=== PATIENT | female | born 1995 | race African-American/Black ===

== ENCOUNTER 2020-01-20 08:44 | Emergency (ER) | payer BC, OTHER ==
[~2020-01-20] VITALS: Ht 165.1 cm; Wt 121.1 kg
[2020-01-20] MEDS ORDERED: HYDROCORTISONE30 G9 RECTAL (09:40)
[2020-01-20] MEDS ORDERED: TRAMADOL 50 MG50 MG PO (09:55)
[2020-01-20] MEDS ORDERED: ANUSOL-HC25 MG RECTAL (09:55)
[2020-01-20 10:05] VITALS: BP 122/74
== END 2020-01-20 10:06 | disposition home or self-care (01) ==
LOC: ER 08:44
DX: K60.2 Anal fissure, unspecified (principal); Z20.2 Contact with and (suspected) exposure to infections with a predominantly sexual mode of transmission

== ENCOUNTER 2020-10-10 13:45 | Emergency (ER) | payer BC, OTHER ==
[~2020-10-10] VITALS: Ht 165.1 cm; Wt 117.9 kg
[~2020-10-10 13:45] MED LIST: ANUSOL-HC25 MG RECTAL; HYDROCORTISONE30 G9 RECTAL; TRAMADOL 50 MG50 MG PO
[2020-10-10 13:47] VITALS: BP 163/89
[2020-10-10] MEDS ORDERED: METFORMIN HCL500 M3 PO (13:55)
[2020-10-10 14:25] LABS: URINE BILIRUBIN NEGATIVE (Negative); URINE BLOOD NEGATIVE (Negative); URINE CLARITY CLEAR; URINE COLOR YELLOW; URINE GLUCOSE-RANDOM* NEGATIVE (Negative); URINE KETONES NEGATIVE (Negative); URINE LEUKOCYTES-REFLEX NEGATIVE (Negative); URINE NITRITE-REFLEX NEGATIVE (Negative); URINE PROTEIN (DIPSTICK) NEGATIVE (Negative); URINE SPECIFIC GRAVITY >= 1.030 (1.005-1.035); URINE UROBILINOGEN 0.2 E.U./dl (0.2-1.0)
[2020-10-10] MEDS ORDERED: FLAGYL500 M1 PO (15:21)
[2020-10-10] MEDS ORDERED: VALACYCLOVIR1000 MG PO (15:21)
== END 2020-10-10 15:37 | disposition home or self-care (01) ==
LOC: ER 13:45
PROVIDERS: Emergency Medicine
DX: A60.04 Herpesviral vulvovaginitis (principal); N76.0 Acute vaginitis; Z79.899 Other long term (current) drug therapy